=== PATIENT | female | born 1945 | race Caucasian/White ===

== ENCOUNTER → 2020-05-01 | Outpatient (CLI) | payer OTHER ==
[~2020-05-01] MED LIST: ASPIRIN81 M1 PO; CALCIUM1 CAP PO; CITALOPRAM20 MG PO; LEVOTHYROXINE0.1 MG PO; LOVASTATIN20 MG PO; OXYBUTYNIN5 MG PO; VITAMIN D31000 IU PO
== END | disposition home or self-care (01) ==
LOC: RAD 08:11
PROVIDERS: ATTEND Nurse Practitioner Family
DX: R05 Cough (principal); R63.4 Abnormal weight loss

== ENCOUNTER → 2020-05-09 | Outpatient (CLI) | payer OTHER | END | disposition home or self-care (01) | LOC: CT 05-06 11:02 | PROVIDERS: ATTEND Nurse Practitioner Family | DX: J43.2 Centrilobular emphysema (principal); I25.10 Atherosclerotic heart disease of native coronary artery without angina pectoris; I28.8 Other diseases of pulmonary vessels; R91.1 Solitary pulmonary nodule; R91.8 Other nonspecific abnormal finding of lung field; M51.34 Other intervertebral disc degeneration, thoracic region; M50.30 Other cervical disc degeneration, unspecified cervical region; Z72.0 Tobacco use ==

== ENCOUNTER → 2021-02-04 | Outpatient (CLI) | payer MEDICARE | END | disposition home or self-care (01) | LOC: RAD 13:32 | PROVIDERS: ATTEND Nurse Practitioner Family | DX: M16.11 Unilateral primary osteoarthritis, right hip (principal); R91.8 Other nonspecific abnormal finding of lung field; R93.89 Abnormal findings on diagnostic imaging of other specified body structures ==